=== PATIENT | male | born 1950 | race Caucasian/White ===

== ENCOUNTER → 2024-01-05 06:57 | Outpatient (REF) | payer OTHER, SELFPAY | LOC: RAD 06:57 | PROVIDERS: ATTENDING PHYSICIAN Family Medicine | DX: Z87.891 Personal history of nicotine dependence (principal) | CPT/HCPCS: 71271 ==

== ENCOUNTER → 2024-01-23 06:38 | Day surgery (SDC) | payer OTHER, SELFPAY | LOC: GI 06:38 | PROVIDERS: ATTENDING PHYSICIAN Internal Medicine | DX: Z12.11 Encounter for screening for malignant neoplasm of colon (principal); R19.5 Other fecal abnormalities; K64.8 Other hemorrhoids; K63.5 Polyp of colon; K62.1 Rectal polyp; D12.3 Benign neoplasm of transverse colon | CPT/HCPCS: 45385; 45381; 45380; 88305 ==

== ENCOUNTER 2024-03-08 06:23 | Day surgery (SDC) | payer OTHER, SELFPAY ==
[2024-03-08 11:17] VITALS: BMI 31.3
[2024-03-08 11:20] VITALS: BMI 31.3
[2024-03-08 11:22] VITALS: BP 130/73
[2024-03-08 14:03] VITALS: BP 121/76
[2024-03-08 14:15] VITALS: BP 116/72
[2024-03-08 14:30] VITALS: BP 123/75
== END 2024-03-08 15:11 | disposition home or self-care (01) ==
LOC: GI 06:23
PROVIDERS: ATTENDING PHYSICIAN Internal Medicine Gastroenterology
DX: D12.3 Benign neoplasm of transverse colon (principal); K57.30 Diverticulosis of large intestine without perforation or abscess without bleeding; K64.0 First degree hemorrhoids
CPT/HCPCS: 45390; 45385; 88305

== ENCOUNTER 2024-08-28 06:13 | Day surgery (SDC) | payer OTHER, SELFPAY ==
[2024-08-28 07:02] VITALS: BMI 31.0
[2024-08-28 07:04] VITALS: BMI 31.0
[2024-08-28 07:06] VITALS: BP 123/72
[2024-08-28 09:15] VITALS: BP 115/72
[2024-08-28 09:30] VITALS: BP 126/78
[2024-08-28 09:45] VITALS: BP 130/83
== END 2024-08-28 10:47 | disposition home or self-care (01) ==
LOC: GI 06:13
PROVIDERS: ATTENDING PHYSICIAN Internal Medicine Gastroenterology
DX: Z12.11 Encounter for screening for malignant neoplasm of colon (principal); D12.3 Benign neoplasm of transverse colon; D12.4 Benign neoplasm of descending colon; K64.0 First degree hemorrhoids; Z86.0101 Personal history of adenomatous and serrated colon polyps; Z98.890 Other specified postprocedural states
CPT/HCPCS: 45390; 45388; 45385; 88305